=== PATIENT | female | born 1995 | race Caucasian/White ===

== ENCOUNTER 2017-11-25 21:08 | Emergency (ER) | payer BC ==
[2017-11-26] MEDS: IBUPROFEN 600 MG TAB PO (01:13)
== END 2017-11-26 03:00 | disposition home or self-care (01) ==
LOC: FTE 21:08
DX: S99.921A Unspecified injury of right foot, initial encounter (principal); W23.0XXA Caught, crushed, jammed, or pinched between moving objects, initial encounter; Y92.9 Unspecified place or not applicable
CPT/HCPCS: 73630; 99283-25